=== PATIENT | male | born 1985 | race African-American/Black ===

== ENCOUNTER 2018-07-13 21:17 | Emergency (ER) | payer SELFPAY ==
[~2018-07-13] VITALS: Ht 187.9 cm; Wt 140.6 kg
[~2018-07-13 21:17] MED LIST: KEFLEX500 MG PO; MOTRIN800 MG PO
[2018-07-13] MEDS ORDERED: PREDNISONE50 MG PO (22:53)
== END 2018-07-13 23:27 | disposition home or self-care (01) ==
LOC: ED 21:17
DX: M79.671 Pain in right foot (principal); Z91.040 Latex allergy status; Z91.013 Allergy to seafood